=== PATIENT | male | born 1945 | race African-American/Black ===

== ENCOUNTER 2020-01-19 12:55 | Inpatient (IN) | payer MEDICARE, OTHER ==
[~2020-01-19] VITALS: Ht 170.2 cm; Wt 81.6 kg
[2020-01-19] MEDS ORDERED: SODIUM CHLORIDE 0.9% 1,000 ML IV ONE (13:52)
[2020-01-19 14:03] LABS: HEMATOCRIT. 44.6 % (42.0-52.0); MEAN CORPUSCULAR HEMOGLOBIN 32.5 pg (28.0-32.0); MEAN CORPUSCULAR VOLUME 96.7 fL (80.0-94.0); MEAN PLATELET VOLUME 10.3 fl (7.4-10.4); PLATELET 128 x1000/uL (130-400); RED BLOOD CELL COUNT 4.61 mill/uL (4.7-6.1); RED CELL DISTRIBUTION WIDTH 13.1 % (11.6-14.6)
[2020-01-19 14:06] LABS: CHLORIDE 108 mEq/L (98-107)
[2020-01-19 14:10] LABS: PARTIAL THROMBOPLASTIN TIME 28.5 sec (23.4-31.0); PROTHROMBIN TIME 11.2 sec (9.6-11.0)
[2020-01-19 14:28] LABS: PLATELET ESTIMATE NORMAL
[2020-01-19] MEDS ORDERED: ASPIRIN 325MG EC TABLET PO ONE (15:45)
[2020-01-19] MEDS ORDERED: DEXTROSE 50% WATER 50ML SYRINGE IV PRN (17:45)
[2020-01-19] MEDS ORDERED: CLONIDINE 0.1MG TABLET PO PRN (17:45)
[2020-01-19] MEDS ORDERED: GUAIFENESIN 200MG/10ML SUGAR FREE UDC PO PRN (17:45)
[2020-01-19] MEDS ORDERED: MAGNESIUM/ALUMINUM HYDROXIDE/SIMETHICONE 30ML UDC PO PRN (17:45)
[2020-01-19] MEDS ORDERED: DOCUSATE SODIUM 100MG CAPSULE PO PRN (17:45)
[2020-01-19] MEDS ORDERED: ACETAMINOPHEN 325MG TABLET PO PRN (17:45)
[2020-01-19] MEDS ORDERED: ONDANSETRON HCL 4MG/2ML INJ IV PRN (17:45)
[2020-01-19] MEDS ORDERED: IPRATROPIUM/ALBUTEROL 0.5-3(2.5)MG/3ML NEB NEB PRN (17:45)
[2020-01-19] MEDS ORDERED: HYDRALAZINE 20MG/ML VIAL IV PRN (17:45)
[2020-01-19] MEDS ORDERED: LORAZEPAM 2MG/ML CPJ IV PRN (17:45)
[2020-01-19] MEDS ORDERED: DIPHENHYDRAMINE 50MG/ML VIAL IV PRN (17:45)
[2020-01-19 18:13] LABS: CLARITY URINE CLEAR (CLEAR); COLOR URINE DARK YELLOW (YELLOW); KETONES URINE 3+ (NEGATIVE); LEUKOCYTE ESTERASE URINE TRACE (NEGATIVE); NITRITE URINE NEGATIVE (NEGATIVE); OCCULT BLOOD URINE 2+ (NEGATIVE); PH URINE 5.5 (4.5-8.0); PROTEIN URINE 1+ (NEGATIVE)
[2020-01-19] MEDS: INSULIN LISPRO 100 UNITS/ML SUBCUT SCH ×2 (18:20→21:00)
[2020-01-19] MEDS: BLOOD SUGAR DIAGNOSTIC STRIP TEST SCH (21:00)
[2020-01-19] MEDS ORDERED: NA PHOS,M-B/NA PHOS,DI-BA ENEMA 118ML PR PRN (22:00)
[2020-01-19] MEDS: SODIUM CHLORIDE 0.9% INJ 3ML FLUSH IVF SCH (22:00)
[2020-01-19] MEDS ORDERED: CEFTRIAXONE 1 G PREMIX 50 ML IV SCH (22:02)
[2020-01-19] MEDS ORDERED: HYDROCODONE/ACETAMINOPHEN 10/325MG TABLET PO PRN (22:07)
[2020-01-19] MEDS ORDERED: MORPHINE SULFATE 2 MG/ML CPJ (NOT FOR IM USE) IV PRN (22:09)
[2020-01-19 23:15] VITALS: BP 125/66
[2020-01-20] VITALS: BP 125/66
[2020-01-20 00:05] LABS: CREATINE KINASE MB FRACTION 12.7 ng/mL (0.5-3.6)
[2020-01-20 04:00] VITALS: BP 132/65
[2020-01-20] MEDS: BLOOD SUGAR DIAGNOSTIC STRIP TEST SCH ×4 (06:42→20:57)
[2020-01-20] MEDS: SODIUM CHLORIDE 0.9% INJ 3ML FLUSH IVF SCH ×3 (06:42→21:02)
[2020-01-20] MEDS: INSULIN LISPRO 100 UNITS/ML SUBCUT SCH ×4 (06:42→20:57)
[2020-01-20 08:00] VITALS: BP 115/70
[2020-01-20] MEDS: ENOXAPARIN 40MG/0.4ML SYR SUBCUT SCH (08:09)
[2020-01-20 09:00] LABS: CHLORIDE 112 mEq/L (98-107); HEMATOCRIT. 38.9 % (42.0-52.0); HEMOGLOBIN. 13.2 g/dL (14.0-18.0); MEAN CORPUSCULAR HEMOGLOBIN 32.7 pg (28.0-32.0); MEAN CORPUSCULAR VOLUME 96.6 fL (80.0-94.0); MEAN PLATELET VOLUME 10.8 fl (7.4-10.4); PLATELET 104 x1000/uL (130-400); RED BLOOD CELL COUNT 4.02 mill/uL (4.7-6.1); RED CELL DISTRIBUTION WIDTH 12.9 % (11.6-14.6)
[2020-01-20 09:08] LABS: LDL CHOLESTEROL 85 mg/dL (5-100)
[2020-01-20 09:11] LABS: CREATINE KINASE MB FRACTION 9.2 ng/mL (0.5-3.6); HDL CHOLESTEROL 51 mg/dL (40-59)
[2020-01-20 09:12] LABS: T4 FREE 1.03 ng/dL (0.76-1.46)
[2020-01-20 09:25] LABS: CREATINE KINASE 2600 IU/L (39-308)
[2020-01-20 12:00] VITALS: BP 131/67
[2020-01-20] MEDS: SODIUM CHLORIDE 0.45% 1,000 ML IV SCH (12:13)
[2020-01-20 14:17] LABS: PLATELET ESTIMATE SLIGHTLY DECREASED
[2020-01-20 16:00] VITALS: BP 117/56
[2020-01-20 16:34] LABS: VITAMIN B12 SERUM 379 pg/mL (211-911)
[2020-01-20 20:00] VITALS: BP 130/61
[2020-01-20] MEDS ORDERED: POTASSIUM CHLORIDE 20MEQ TABLET SR PO SCH (20:00)
[2020-01-20] MEDS ORDERED: CEFTRIAXONE 1 G PREMIX 50 ML IV SCH ×2 (21:00)
[2020-01-21] VITALS: BP 100/61
[2020-01-21] MEDS: CEFTRIAXONE 1 G PREMIX 50 ML IV SCH ×2 (00:28→23:07)
[2020-01-21 04:00] VITALS: BP 111/72
[2020-01-21] MEDS: SODIUM CHLORIDE 0.9% INJ 3ML FLUSH IVF SCH ×3 (05:40→23:07)
[2020-01-21] MEDS: BLOOD SUGAR DIAGNOSTIC STRIP TEST SCH ×4 (05:52→20:50)
[2020-01-21] MEDS: INSULIN LISPRO 100 UNITS/ML SUBCUT SCH ×4 (06:09→20:50)
[2020-01-21 08:00] VITALS: BP 100/68
[2020-01-21] MEDS: SODIUM CHLORIDE 0.45% 1,000 ML IV SCH (08:00)
[2020-01-21 08:09] LABS: BASOPHILS % 0.3 % (0.0-2.0); EOSINOPHILS % 1.3 % (0.0-5.0); HEMATOCRIT. 39.6 % (42.0-52.0); HEMOGLOBIN. 13.3 g/dL (14.0-18.0); LYMPHOCYTES % 11.6 % (20.0-50.0); MEAN CORPUSCULAR HEMOGLOBIN 32.8 pg (28.0-32.0); MEAN CORPUSCULAR VOLUME 97.3 fL (80.0-94.0); MEAN PLATELET VOLUME 10.8 fl (7.4-10.4); MONOCYTES % 8.6 % (2.0-8.0); NEUTROPHILS % 78.2 % (40.0-76.0); PLATELET 103 x1000/uL (130-400); RED BLOOD CELL COUNT 4.07 mill/uL (4.7-6.1)
[2020-01-21 08:16] LABS: CHLORIDE 110 mEq/L (98-107)
[2020-01-21] MEDS: ENOXAPARIN 40MG/0.4ML SYR SUBCUT SCH (09:06)
[2020-01-21 12:00] VITALS: BP 103/60
[2020-01-21 20:00] VITALS: BP 129/60
[2020-01-22] VITALS: BP 137/63
[2020-01-22] MEDS: SODIUM CHLORIDE 0.45% 1,000 ML IV SCH (03:45)
[2020-01-22 04:00] VITALS: BP 154/76
[2020-01-22] MEDS: BLOOD SUGAR DIAGNOSTIC STRIP TEST SCH ×3 (06:08→17:26)
[2020-01-22] MEDS: SODIUM CHLORIDE 0.9% INJ 3ML FLUSH IVF SCH ×2 (06:08→13:53)
[2020-01-22] MEDS: INSULIN LISPRO 100 UNITS/ML SUBCUT SCH ×3 (06:19→17:15)
[2020-01-22] MEDS: ENOXAPARIN 40MG/0.4ML SYR SUBCUT SCH (09:24)
[2020-01-22 18:31] VITALS: BP 130/64
== END 2020-01-22 20:20 | disposition home or self-care (01) | DRG 74 ==
LOC: ER 13:05 → ENRESERV 21:42 → 5WST 22:54
PROVIDERS: ADMIT Internal Medicine; ATTEND Internal Medicine
PROC: 4A10X4Z Monitoring of Central Nervous Electrical Activity, External Approach (ICD-10-PCS; principal; 2020-01-19)
DX: G90.8 Other disorders of autonomic nervous system (principal); M62.82 Rhabdomyolysis; R65.10 Systemic inflammatory response syndrome (SIRS) of non-infectious origin without acute organ dysfunction; W18.39XA Other fall on same level, initial encounter; D72.829 Elevated white blood cell count, unspecified; R41.82 Altered mental status, unspecified; Z86.73 Personal history of transient ischemic attack (TIA), and cerebral infarction without residual deficits; Z85.9 Personal history of malignant neoplasm, unspecified; Y93.89 Activity, other specified; Y92.090 Kitchen in other non-institutional residence as the place of occurrence of the external cause; Y99.8 Other external cause status; G31.9 Degenerative disease of nervous system, unspecified
CPT/HCPCS: 36415; 70551; 71045; 73521; 80048; 80053; 80061; 81003; 82550; 82553; 82607; 82962; 83880; 84439; 84443; 84484; 85025; 93005; 93970; 97116; 97162; 99285; J0696; J1650; J1815; J7030